=== PATIENT | female | born 1995 | race Caucasian/White ===

== ENCOUNTER 2023-02-21 13:52 | Emergency (ER) | payer OTHER ==
[2023-02-21] MEDS ORDERED: Acetaminophen 500 MG TAB ONE (15:05)
== END 2023-02-21 16:39 | disposition left against medical advice (07) ==
LOC: MADERS 13:52
DX: Z53.21 Procedure and treatment not carried out due to patient leaving prior to being seen by health care provider (principal)
CPT/HCPCS: 87804; U0003; U0005

== ENCOUNTER 2023-05-29 20:43 | Emergency (ER) | payer MEDICAID, OTHER ==
[2023-05-29 22:43] LABS: BHCG - Serum Negative (NEGATIVE); Pregs Control Background? CLEAR/WHITE (CLR/WHITE); Pregs Control Bar Appear? YES (CONTROL BAR)
[2023-05-29 22:48] LABS: Prothrombin Time 13.9 sec (12.0-14.7)
[2023-05-29 22:49] LABS: Hemoglobin 13.4 g/dL (12.0-16.0); Mean Corpuscular HGB CONC 32.4 g/dL (32.0-36.0); Mean Corpuscular Hemoglobin 28.5 pg (27.0-31.0); Mean Corpuscular Volume 87.8 fl (78.0-98.0); Mean Platelet Volume 8.4 fL (7.4-10.4); PTT 27.9 sec (22.9-36.1); Platelet Count 183 10x3/uL (130-400); RBC Distribution Width 12.9 % (11.5-14.5)
[2023-05-29 22:51] LABS: ALT (SGPT) 34 U/L (8-55); AST (SGOT) 25 U/L (5-34); Albumin 4.2 g/dL (3.5-5.0); Alkaline Phosphatase 97 U/L (40-110); Anion Gap 15 mmol/L (10-20); BUN (Urea Nitrogen) 10 mg/dL (7.0-18.7); Bilirubin, Total 0.6 mg/dL (0.2-1.2); Calc. Creatinine Clearance 0 mL/min (70-130); Calcium 9.2 mg/dL (7.8-10.44); Carbon Dioxide 21 mmol/L (22-29); Chloride 105 mmol/L (98-107); Estimated GFR 85; Globulin 3.6 g/dL (2.4-3.5); Glucose 92 mg/dL (70-105); MONO NEGATIVE CONTROL ZONE White (Negative) (White); MONO POSITIVE CONTROL Pink Line (Positive) (PINK/RED); Mononucleosis NEGATIVE (NEGATIVE); Potassium 3.9 mmol/L (3.5-5.1); Protein, Total 7.8 g/dL (6.0-8.3); Sodium 137 mmol/L (136-145)
[2023-05-29 23:22] LABS: Band 7 % (5-11); Eosinophils 1 % (0-10); Lymphocytes 22 % (21-51); MDiff Complete? YES; Monocytes 4 % (0-10); Neutrophil 60 % (42-75); Platelet Adequacy Comment Appears Adequate; Reactive Lymphocytes 6 % (0-10)
== END 2023-05-29 23:46 | disposition home or self-care (01) ==
LOC: MADERS 20:43
DX: J02.9 Acute pharyngitis, unspecified (principal); R50.9 Fever, unspecified
CPT/HCPCS: 36415; 80053; 83605; 84703; 85025; 85610; 85730; 86308; 87040; 87081; 87430; 87804; 99283

== ENCOUNTER 2025-11-09 21:55 | Emergency (ER) | payer OTHER ==
[2025-11-09] MEDS ORDERED: Ibuprofen 800 MG TAB ONE (22:15)
== END 2025-11-09 22:59 | disposition home or self-care (01) ==
LOC: MADERS 21:55
DX: K52.9 Noninfective gastroenteritis and colitis, unspecified (principal)
CPT/HCPCS: 87428; 99284; Q0162